=== PATIENT | female | born 1990 | race African-American/Black ===

== ENCOUNTER 2017-03-03 08:58 | Emergency (ER) | payer OTHER ==
--- NOTE | ~2017-03-03 | CR181 ---
[facility] A Service of [facility] & [facility] RADIOLOGY TEXT RESULTS PATIENT: MADI KWOK LOCATION: CFTX : 88 UNIT #: [id number] AGE: [address]: Karla Blood APRN SEX: F ORDER DR: [id number] [facility] [address] [place], [place] [address] [id number] E MR#: [id number] Acc #: [id number] NAME: MADI KWOK : 1990 SEX: F STUDY DATE/TIME: 03/03/2017 9:50 UNIT: [facility] ROOM: STUDY DESCRIPTION: CR Lumbar Spine 2 or 3 Views Attending Physician: Karla Blood A.P.R.N. Ordering Physician: Ed Doctor [id number] [facility] Primary Care Physician: Primary Care Physician No MEDICAL IMAGING REPORT This report is preliminary unless electronic signature is present EXAM Lumbar spine 3 view series INDICATION Low back pain since this morning after twisting back. FINDINGS AP and lateral projections of the lumbar segment show good mineralization of both anterior and posterior elements. They are all anatomically normal without indication of fracture, dislocation, or malignant change of a sclerotic or lytic type. There is no congenital defect noted. The sacroiliac joints are normal. IMPRESSION Normal lumbar spine. Dictated by... Rashid Sage M.D. THIS IS AN ELECTRONICALLY VERIFIED REPORT Rashid Sage M.D. at 03/04/2017 7:04 AM TODD/matthew TD: 03/03/2017 13:19 JOB #: [id number] MEDICAL IMAGING REPORT Page 1 of 1 COPY
== END 2017-03-03 10:34 | disposition home or self-care (01) ==
LOC: CFTX 08:58 → CED 08:58 → CFTX 10:27
DX: S33.5XXA Sprain of ligaments of lumbar spine, initial encounter (principal); X50.1XXA Overexertion from prolonged static or awkward postures, initial encounter; Y92.9 Unspecified place or not applicable
CPT/HCPCS: 72100; 96372; 99283; J1885